=== PATIENT | male | born 1980 | race Caucasian/White ===

== ENCOUNTER 2017-01-06 08:42 | Emergency (ER) | payer MEDICARE, MEDICAID ==
[~2017-01-06] VITALS: Ht 180.3 cm; Wt 81.2 kg
[~2017-01-06 08:42] MED LIST: LOSA1TAB18 PO; TRAM50TA2 PO
[2017-01-06 08:45] VITALS: BP 145/94
== END 2017-01-06 09:30 | disposition home or self-care (01) ==
LOC: ED 09:27
DX: B35.3 Tinea pedis (principal); M79.672 Pain in left foot; M79.671 Pain in right foot
CPT/HCPCS: 99283

== ENCOUNTER 2017-01-09 21:47 | Emergency (ER) | payer MEDICARE, MEDICAID ==
[~2017-01-09] VITALS: Ht 180.3 cm; Wt 88.2 kg
[2017-01-09 21:55] VITALS: BP 162/100
== END 2017-01-09 23:11 | disposition left against medical advice (07) ==
LOC: ED 23:05
DX: F51.01 Primary insomnia (principal)
CPT/HCPCS: 99283